=== PATIENT | female | born 1960 | race Caucasian/White ===

== ENCOUNTER 2016-12-14 21:00 | Emergency (ER) | payer BC ==
[~2016-12-14] VITALS: Ht 157.5 cm; Wt 63.0 kg
[~2016-12-14 21:00] MED LIST: ATOR20TA38 PO; HYDR-906 PO
[2016-12-14 21:08] VITALS: Ht 157.5 cm; Wt 63.0 kg
[2016-12-14] MEDS ORDERED: SOD CHLORIDE 0.9% 1,000 ML IV STA (22:47)
[2016-12-14] MEDS ORDERED: ONDANSETRON 4 MG INJ IV STA (22:47)
[2016-12-14] MEDS ORDERED: morphine 4 MG/ML VIAL IV STA (22:47)
--- NOTE | 2016-12-14 22:56 | ERD ---
ER Documentation Chief Complaint Date/Time DATE: 12/14/16 TIME: 22:54 Chief Complaint body achwes x 2 days HPI 56-year-old female presents to emergency department for complaints of left lower quadrant abdominal pain started yesterday. Patient describes the pain as sharp pain, 8/10 scale, accompanied with fever that started today. Patient denies any nausea or vomiting. Patient denies hematuria or dysuria. Patient denies any blood in the stool or black stool. Patient denies any constipation or diarrhea. She did not take any medications for pain. ROS All systems reviewed and are negative except as per history of present illness. Medications Home Meds Active Scripts Hydrocodone Bit-Acetaminophen ([place]) 5-325 Mg Tablet, 1 TAB PO Q4H Y for PAIN, #15 TAB Prov:SHALONDA KURTZ DO 07/26/15 Reported Medications Atorvastatin Calcium* (Atorvastatin Calcium*) 20 Mg Tablet, 20 MG PO HS, TAB 10/29/14 Allergies Allergies: Coded Allergies: No Known Allergy (Unverified , 07/26/15) PMhx/Soc History of Surgery: Yes (c-sectionx2) Anesthesia Reaction: No Hx Neurological Disorder: No Hx Respiratory Disorders: No Hx Cardiac Disorders: No Hx Psychiatric Problems: No Hx Miscellaneous Medical Probl: Yes (hernia, right breast lumpectomy(non-ca), tubal ligation diverticulitis) Hx Alcohol Use: No Hx Substance Use: No Hx Tobacco Use: No Smoking Status: Never smoker FmHx Family History: No coronary disease, No diabetes, No other Physical Exam Vitals Vital Signs Date Time Temp Pulse Resp B/P Pulse Ox O2 Delivery O2 Flow Rate FiO2 12/14/16 21:08 99.2 84 20 130/66 98 Physical Exam GENERAL: The patient is well developed and appropriate for usual state of health, in no apparent distress. CHEST: Clear to auscultation bilaterally. There are no rales, wheezes or rhonchi. HEART: Regular rate and rhythm. No murmurs, clicks, rubs or gallops. No S3 or S4. ABDOMEN: Soft, nontender and nondistended. Good bowel sounds. No rebound or guarding. No gross peritonitis. No gross organomegaly or masses. No Barragan sign or McBurney point tenderness. BACK: No midline or flank tenderness. EXTREMITIES: Equal pulses bilaterally. There is no peripheral clubbing, cyanosis or edema. No focal swelling or erythema. Full range of motion. Grossly neurovascularly intact. NEURO: Alert and oriented. Cranial nerves 2-12 intact. Motor strength in all 4 extremities with 5/5 strength. Sensation grossly intact. Normal speech and gait. SKIN: There is no apparent rash or petechia. The skin is warm and dry. HEMATOLOGIC AND LYMPHATIC: There is no evidence of excessive bruising or lymphedema. No gross cervical, axillary, or inguinal lymphadenopathy. Result Diagram: 12/14/163 12/14/163 Results 24 hrs Laboratory Tests Test 12/14/16 23:13 White Blood Count 5.810^3/ul Red Blood Count 4.2110^6/ul Hemoglobin 13.1g/dl Hematocrit 38.9% Mean Corpuscular Volume 92.4fl Mean Corpuscular Hemoglobin 31.1pg Mean Corpuscular Hemoglobin Concent 33.7g/dl Red Cell Distribution Width 13.7% Platelet Count 96678^3/UL Mean Platelet Volume 10.2fl Neutrophils % 75.7% Lymphocytes % 9.9% Monocytes % 12.9% Eosinophils % 0.5% Basophils % 0.5% Nucleated Red Blood Cells % 0.0/100WBC Neutrophils # 4.410^3/ul Lymphocytes # 0.610^3/ul Monocytes # 0.810^3/ul Eosinophils # 0.010^3/ul Basophils # 0.010^3/ul Nucleated Red Blood Cells # 0.010^3/ul Urine Color LT. YELLOW Urine Clarity CLEAR Urine pH 6.0 Urine Specific [place] <=1.005 Urine Ketones NEGATIVE Urine Nitrite NEGATIVE Urine Bilirubin NEGATIVE Urine Urobilinogen 0.2 E.U./dL Urine Leukocyte Esterase NEGATIVE Urine Microscopic RBC 2-5/HPF Urine Microscopic WBC NONE SEEN/HPF Urine Squamous Epithelial Cells RARE Urine Hemoglobin 1+ Urine Glucose NEGATIVE% Urine Total Protein NEGATIVE Sodium Level 137mmol/L Potassium Level 4.2mmol/L Chloride Level 104mmol/L Carbon Dioxide Level 25mmol/L Anion Gap 12 Blood Urea Nitrogen 17mg/dl Creatinine 0.66mg/dl Glucose Level 100mg/dl Calcium Level 9.4mg/dl Total Bilirubin 0.0mg/dl Direct Bilirubin 0.00mg/dl Indirect Bilirubin 0.0mg/dl Aspartate Amino Transf (AST/SGOT) 40IU/L Alanine Aminotransferase (ALT/SGPT) 52IU/L Alkaline Phosphatase 124IU/L Total Protein 7.0g/dl Albumin 4.3g/dl Globulin 2.70g/dl Albumin/Globulin Ratio 1.59 Lipase 115U/L Current Medications Medications (Trade) Dose Ordered Sig/[place] Route PRN Reason Start Time Stop Time Status Last Admin Dose Admin Sodium Chloride (NS) 1,000 ml @ 1,000 mls/hr Q1H STAT IV 12/14/16 22:47 12/14/16 23:46 DC 12/14/16 23:22 Morphine Sulfate (morphine) 4 mg ONCE STAT IV 12/14/16 22:47 12/14/16 22:48 DC 12/14/16 23:22 Ondansetron HCl 4 mg 4 mg ONCE STAT IV 12/14/16 22:47 12/14/16 22:48 DC 12/14/16 23:22 Sodium Chloride (NS) 100 ml @ ud STK-MED ONCE .ROUTE 12/15/16 00:19 12/15/16 00:20 DC 12/15/16 00:41 Iohexol (Omnipaque 300mg/ ml) 150 ml STK-MED ONCE .ROUTE 12/15/16 00:19 12/15/16 00:20 DC 12/15/16 00:40 Patient was given medication for pain here in emergency department, after treatment, patient verbalized feeling much better. Patient's pain is improved.Patient was given Zofran here in the emergency department. After treatment, patient was able to tolerate po fluids here in the emergency department without any vomiting. There is no signs and symptoms of dehydration. Normal saline IV bolus was given here in emergency department for rehydration, patient tolerated IV fluids. PROCEDURE: CT ABDOMEN/PELVIS WITH CONTRAST CLINICAL INDICATION: 56-year-old female with abdominal pain. TECHNIQUE: The study was performed utilizing a [employer] VCT 64-slice CT scanner. Direct axial sections were obtained through the abdomen and pelvis with the use of 100 cc of Omnipaque-300 nonionic intravenous contrast material. Sagittal and coronal reformations were obtained. One or more of the following dose reduction techniques were utilized: automated exposure control, adjustment of the mA and/or kV according to patient's size or use of iterative reconstruction technique. The images were reviewed on a PACS workstation. CTD/ vol = 9.4 mGy; Total Exam DLP = 521.5 mGy-cm. COMPARISON: CT abdomen/pelvis July 26, 2015. FINDINGS: The lung bases are unremarkable. There is no evidence for significant pleural effusion. The liver has a normal size and contour without focal areas of abnormal density or contrast enhancement. No intrahepatic nor extrahepatic biliary ductal dilatation is seen. The gallbladder demonstrates no wall thickening nor pericholecystic fluid. No biliary stones are evident. The pancreas is without areas of abnormal attenuation or contrast enhancement. This spleen is identified and has a normal size without abnormal density or contrast enhancement. The adrenal glands are unremarkable. The kidneys are functional bilaterally. There is a small nonobstructing right mid renal 2 x 2 mm calculus. There is a right upper pole renal cortical ovoid density measuring approximately 1.9 x 1.0 x 1.1 cm which does not appear to be a simple cyst and appears to have increased slightly in volume in the interval. The urinary bladder contains urine. There is mild retained stool within the ascending and transverse colon without obstruction. There are a couple of small diverticula within the sigmoid colon without surrounding inflammatory changes. The appendix is visualized and is without edema or surrounding inflammatory reaction. The uterus is not visualized consistent with prior hysterectomy. There is no significant free fluid. The aortoiliac vessels are without aneurysmal dilatation. Mild degenerative changes are present within the spine. IMPRESSION: 1. Small nonobstructing 2 mm right renal calculus. 2. Right upper pole renal cortical density which does not appear to be is simple cyst and appears to have increased slightly in volume compared to the patient's prior study. A small renal cell tumor cannot be excluded. 3. Mild retained stool without obstruction. 4. No CT evidence for appendicitis. 5. Minimal sigmoid diverticulosis. 6. Status post hysterectomy. 7. Mild degenerative changes within the spine. .Paul Hung MD, Date Time Electronically viewed and signed by .Paul Hung MD, on 12/15/2016 01:40 .M/ CC: JULIANNE TORIBIO ACCOUNT SUPPORT ASSOCIATE Procedures/MDM Medical Decision Making: Patient's pain is nonspecific at this time, possible renal colic, can also be from the constipation. There is low suspicion for abdominal emergencies at this time. Patients abdominal exam is normal at this time. Patients radiology exam does not show any abdominal emergencies at this time. There is low suspicion for appendicitis, cholecystitis, abdominal aortic aneurysms or peritonitis at this time. There is low suspicion for sepsis. Patient appears well and is hemodynamically stable. Disposition: Home. Condition: Stable Prescription MiraLAX, tramadol, Colace, ibuprofen Instructions: Patient is advised to take medications as prescribed. Patient is advised to rest, increase fluid intake and do brat diet for next 1-2 days and progress as tolerated. Patient is advised that if symptoms are worse, severe abdominal pain, uncontrolled vomiting, high fever, severe flank pain, worst signs and symptoms, to return to the emergency department immediately. Otherwise, patient can follow up with primary care doctor in 5-7 days. Patient was advised to follow-up with primary care doctor regarding CT scan results, cannot fully rule out small cell renal carcinoma, to be investigated with primary care doctor, patient was advised about this. Departure Diagnosis: Primary Impression: Abdominal pain Abdominal location: lower abdomen, unspecified Qualified Code: R10.30 - Lower abdominal pain Additional Impression: Renal stone Condition: Stable Patient Instructions: Abdominal Pain, Kidney Stone, Undescended (No Symptoms) Additional Instructions: Patient is advised to take medications as prescribed. Patient is advised to rest , increase fluid intake and do brat diet for next 1-2 days and progress as tolerated. Patient is advised that if symptoms are worse, severe abdominal pain , uncontrolled vomiting, high fever, severe flank pain, worst signs and symptoms , to return to the emergency department immediately. Otherwise, patient can follow up with primary care doctor in 5-7 days. Patient was advised to follow- up with primary care doctor regarding CT scan results, cannot fully rule out small cell renal carcinoma, to be investigated with primary care doctor, patient was advised about this. JULIANNE TORIBIO NP Dec 14, 2016 22:56
[2016-12-14 23:53] LABS: ADD SCAN DIFF NO
[2016-12-14 23:56] LABS: ABNORMAL IP MESSAGE 1; BASOPHILS % 0.5 % (0.0-2.0); EOSINOPHILS % 0.5 % (0.0-7.0); HEMATOCRIT 38.9 % (37.0-47.0); HEMOGLOBIN 13.1 g/dl (12.0-16.0); LYMPHOCYTES # 0.6 10^3/ul (0.8-2.9); LYMPHOCYTES % 9.9 % (15.0-51.0); MEAN CORPUSCULAR HEMOGLOBIN 31.1 pg (29.0-33.0); MEAN CORPUSCULAR HGB CONC 33.7 g/dl (32.0-37.0); MEAN CORPUSCULAR VOLUME 92.4 fl (82.0-101.0); MEAN PLATELET VOLUME 10.2 fl (7.4-10.4); MONOCYTE # 0.8 10^3/ul (0.3-0.9); MONOCYTES % 12.9 % (0.0-11.0); NEUTROPHIL # 4.4 10^3/ul (1.6-7.5); NEUTROPHILS % 75.7 % (39.0-77.0); PLATELET COUNT 225 10^3/UL (140-415); RED BLOOD COUNT 4.21 10^6/ul (4.20-5.40); RED CELL DISTRIBUTION WIDTH 13.7 % (11.5-14.5); WHITE BLOOD COUNT 5.8 10^3/ul (4.8-10.8)
[2016-12-15 00:02] LABS: ADD UMIC YES; URINE BILIRUBIN (Dip) NEGATIVE (NEGATIVE); URINE BLOOD (Dip) 1+ (NEGATIVE); URINE COLOR LT. YELLOW (YELLOW); URINE GLUCOSE (Dip) NEGATIVE (NEGATIVE); URINE KETONES (Dip) NEGATIVE (NEGATIVE); URINE LEUKOCYTE ESTERASE (Dip) NEGATIVE (NEGATIVE); URINE NITRITE (Dip) NEGATIVE (NEGATIVE); URINE TOTAL PROTEIN (Dip) NEGATIVE (NEGATIVE); URINE UROBILINOGEN (Dip) 0.2 E.U./dL (0.1-1.0)
[2016-12-15 00:15] LABS: ALBUMIN 4.3 g/dl (3.3-4.9); ALBUMIN/GLOBULIN RATIO 1.59; CALCIUM 9.4 mg/dl (8.4-10.2); CREATININE 0.66 mg/dl (0.44-1.00); POTASSIUM 4.2 mmol/L (3.5-5.1); SQUAMOUS EPITHELIAL CELL,UR RARE
[2016-12-15] MEDS ORDERED: IOHEXOL 300MG/ML 150 ML BTL ONE (00:19)
[2016-12-15] MEDS ORDERED: SOD CHLORIDE 0.9% 100 ML ONE (00:19)
--- NOTE | 2016-12-15 01:40 | RADRPT ---
PROCEDURE: CT ABDOMEN/PELVIS WITH CONTRAST CLINICAL INDICATION: 56-year-old female with abdominal pain. TECHNIQUE: The study was performed utilizing a [employer] VCT 64-slice CT scanner. Direct axia l sections were obtained through the abdomen and pelvis with the use of 100 cc of Omnipaque-300 corbin onic intravenous contrast material. Sagittal and coronal reformations were obtained. One or more of the following dose reduction techniques were utilized: automated exposure control, adjustment of the mA and/or kV according to patient's size or use of iterative reconstruction technique. The images were reviewed on a PACS workstation. CTD/vol = 9.4 mGy; Total Exam DLP = 521.5 mGy-cm. COMPARISON: CT abdomen/pelvis July 26, 2015. FINDINGS: The lung bases are unremarkable. There is no evidence for significant pleural effusion. The liver has a normal size and contour without focal areas of abnormal density or contrast enhancement. No in trahepatic nor extrahepatic biliary ductal dilatation is seen. The gallbladder demonstrates no wall thickening nor pericholecystic fluid. No biliary stones are evident. The pancreas is without areas o f abnormal attenuation or contrast enhancement. This spleen is identified and has a normal size wit hout abnormal density or contrast enhancement. The adrenal glands are unremarkable. The kidneys are functional bilaterally. There is a small nonobstructing right mid renal 2 x 2 mm calculus. There i s a right upper pole renal cortical ovoid density measuring approximately 1.9 x 1.0 x 1.1 cm which d oes not appear to be a simple cyst and appears to have increased slightly in volume in the interval. The urinary bladder contains urine. There is mild retained stool within the ascending and transverse colon without obstruction. There are a couple of small diverticula within the sigmoid co [place] without surrounding inflammatory changes. The appendix is visualized and is without edema or [place] rrounding inflammatory reaction. The uterus is not visualized consistent with prior hysterectomy. T here is no significant free fluid. The aortoiliac vessels are without aneurysmal dilatation. Mild d egenerative changes are present within the spine. IMPRESSION: 1. Small nonobstructing 2 mm right renal calculus. 2. Right upper pole renal cortical density which does not appear to be is simple cyst and appears t o have increased slightly in volume compared to the patient's prior study. A small renal cell tumor cannot be excluded. 3. Mild retained stool without obstruction. 4. No CT evidence for appendicitis. 5. Minimal sigmoid diverticulosis. 6. Status post hysterectomy. 7. Mild degenerative changes within the spine. .Paul Hung MD, Date Time Electronically viewed and signed by .Paul Hung MD, MD on 12/15/2016 01:40 .M/
[2016-12-15] MEDS ORDERED: TRAM50TA2 PO (01:49)
[2016-12-15] MEDS ORDERED: POLY17PO6 PO (01:49)
[2016-12-15] MEDS ORDERED: DOCU-144 PO (01:49)
[2016-12-15 02:25] VITALS: BP 132/68; PULSE 79; RESP 16; TEMP 98.7
== END 2016-12-15 02:29 | disposition home or self-care (01) ==
LOC: FTE 21:00
DX: R10.32 Left lower quadrant pain (principal); N20.0 Calculus of kidney
CPT/HCPCS: 74177; 80053; 81001; 83690; 85025; J2270; J2405; J7030; Q9967; 81003